=== PATIENT | female | born 1955 | race Caucasian/White ===

== ENCOUNTER → 2016-10-30 | Outpatient (CLI) | payer BC ==
--- NOTE | 2016-10-30 14:11 | MM ---
Reason for exam: history of breast cancer, conservation therapy. Last mammogram was performed 1 year ago. History: Patient is postmenopausal and has history of breast cancer at age 56. Family history of breast cancer in paternal grandmother at age 70. Malignant left breast needle localization of the left breast, February 16, 2012. Lumpectomy of the left breast, February 16, 2012. Malignant left mammotome panel of the left breast, January 28, 2012. Radiation therapy, 2011. Benign excisional biopsy of the left breast, March 18, 2000. Benign excisional biopsy of the right breast , 1984. Took hormonal contraceptives for 21 years. Taking antineoplastic for 3 years beginning at age 56. Physical Findings: Nurse did not find any significant physical abnormalities on exam. MG 3D Diag Mammo W/Cad LORENA Bilateral CC and MLO view(s) were taken. Prior study comparison: October 29, 2015, bilateral MG 3d diag mammo w/cad LORENA. October 25, 2014, bilateral MG diagnostic mammo w CAD LORENA. October 24, 2013, CAD bilateral diagnostic mammogram. October 21, 2012, CAD bilateral diagnostic mammogram. January 12, 2012, bilateral digital screening mammo w/CAD. December 26, 2010, bilateral digital screening mammo w/CAD. The breast tissue is heterogeneously dense. This may lower the sensitivity of mammography. There is chronic nodularity in the left breast. Post surgical deformity and lumpectomy scar redemonstrated in the left breast. No significant new findings when compared with previous films. These results were verbally communicated with the patient and result sheet given to the patient on 10/30/16. ASSESSMENT: Benign, BI-RAD 2 RECOMMENDATION: Follow-up diagnostic mammogram of both breasts in 1 year. YANG
== END | disposition home or self-care (01) ==
LOC: RADMAMWWP 12:53
PROVIDERS: ATTEND Radiology Diagnostic Radiology
DX: C50.912 Malignant neoplasm of unspecified site of left female breast (principal)
CPT/HCPCS: G0204; G0279

== ENCOUNTER 2017-01-09 08:56 | Day surgery (SDC) | payer BC ==
[2017-01-08 08:59] VITALS: BMI 23.3
[~2017-01-09 08:56] MED LIST: LACTATED RINGERS 1,000 ML IV SCH
[2017-01-09 10:33] VITALS: TEMP 98
[2017-01-09] MEDS ORDERED: LIDOCAINE 1% 20 ML VIAL (10MG/ML) FOR IV START INTRADERMA ONE (10:37)
[2017-01-09] MEDS ORDERED: LIDOCAINE 1% INJ 10MG/ML (20 ML MDV) ONE (11:02)
[2017-01-09] MEDS ORDERED: PROPOFOL 10 MG/ML 20 ML VIAL IV ONE (11:02)
--- NOTE | 2017-01-09 11:10 | P.PCN ---
Date of Procedure: 01/09/17 Procedure(s) Performed: BRIEF HISTORY: Patient is a 61-year-old, pleasant, white female, scheduled for an upper endoscopy as a part of evaluation of chest pain, heartburn and excessive burping since October of this year. She is presently on Prilosec 40 mg daily as well as Pepcid 40 mg daily and still remains symptomatic and hence scheduled for an upper endoscopy to evaluate further.. PROCEDURE PERFORMED: Esophagogastroduodenoscopy with biopsy. PREOPERATIVE DIAGNOSIS: GERD/epigastric pain/chest pain and excessive burping. IV sedation per anesthesia. PROCEDURE: After informed consent was obtained, the patient was brought into the endoscopy unit. IV conscious sedation was administered by Anesthesia under continuous monitoring. Initially the Olympus GIF-140 video endoscope was inserted into the mouth. Esophagus intubated without any difficulty. It was gradually advanced into the stomach and duodenum and carefully examined. The bulb and the second part of the duodenum appeared normal. The scope at this time was withdrawn to the stomach, adequately insufflated with air, and upon careful examination, mucosa of the antrum, had mild gastritis and biopsies were done from this area. The body, cardia and the fundus appeared normal. The scope was then withdrawn into the esophagus. The GE junction was located at 39 cm from the incisors. The esophagus appeared normal. There were no erosions or ulcerations seen, biopsies were done from the distal esophagus and the patient tolerated the procedure well. IMPRESSION: 1. Mild antral gastritis. 2. Normal-appearing esophagus with no evidence of esophagitis, esophageal stricture or Edward's esophagus. RECOMMENDATIONS: The findings of this examination were discussed with the patient as well as a family. She was advised to follow with the biopsy results. She was advised to continue with her current medications and follow antireflux measures. I given a prescription for Carafate 1 g 3 times daily as needed.
[2017-01-09 11:30] VITALS: BP 115/79; PULSE 78; RESP 18
== END 2017-01-09 11:49 | disposition home or self-care (01) ==
LOC: ORWHC2ENDO 08:56
PROVIDERS: ATTEND Internal Medicine Gastroenterology
DX: K21.0 Gastro-esophageal reflux disease with esophagitis (principal); K29.50 Unspecified chronic gastritis without bleeding; C50.919 Malignant neoplasm of unspecified site of unspecified female breast; Z79.899 Other long term (current) drug therapy
CPT/HCPCS: 88305; 88342; 43239; J2001; J2704

== ENCOUNTER → 2017-07-02 | Outpatient (CLI) | payer OTHER ==
--- NOTE | 2017-07-02 16:03 | US ---
EXAMINATION TYPE: US pelvic complete DATE OF EXAM: 07/02/2017 COMPARISON: NONE CLINICAL HISTORY: R87.619 abnormal cytological findings in specimens. Patient states no problems. His tory of breast CA 5 years ago. TECHNIQUE: Transabdominal (TA). Date of LMP: About 7-8 years ago EXAM MEASUREMENTS: Uterus: 9.0 x 3.4 x 3.9 cm Endometrial Stripe: 0.6 cm Right Ovary: 2.0 x 1.0 x 1.2 cm Left Ovary: 2.0 x 0.7 x 1.1 cm 1. Uterus: Anteverted Two echogenic foci visualized, largest measuring 0.3 x 0.5 x 0.5 cm. These l ikely represent small calcifications. 2. Endometrium: wnl 3. Right Ovary: wnl 4. Left Ovary: wnl 5. Bilateral Adnexa: wnl 6. Posterior cul-de-sac: wnl IMPRESSION: Thickened endometrial stripe given the patient's age. Direct visualization is recommended .
== END | disposition home or self-care (01) ==
LOC: RADUSWWP 15:25
PROVIDERS: ATTEND Obstetrics & Gynecology
DX: R93.8 Abnormal findings on diagnostic imaging of other specified body structures (principal)
CPT/HCPCS: 76856

== ENCOUNTER → 2017-11-02 | Outpatient (CLI) | payer BC, OTHER ==
--- NOTE | 2017-11-02 14:37 | MM ---
Reason for exam: additional evaluation requested from prior study. Last mammogram was performed 1 year ago. History: Patient is postmenopausal, has history of breast cancer at age 56, and history of other cancer. Family history of breast cancer in paternal grandmother at age 70. Malignant left breast needle localization of the left breast, February 16, 2012. Lumpectomy of the left breast, February 16, 2012. Malignant left mammotome panel of the left breast, January 28, 2012. Radiation therapy, 2011. Benign excisional biopsy of the left breast, March 18, 2000. Benign excisional biopsy of the right breast, 1984. Took hormonal contraceptives for 21 years. Taking antineoplastic for 3 years beginning at age 56. Physical Findings: Nurse did not find any significant physical abnormalities on exam. MG 3D Diag Mammo W/Cad LORENA Bilateral CC and MLO view(s) were taken. Prior study comparison: October 30, 2016, bilateral MG 3d diag mammo w/cad LORENA. October 29, 2015, bilateral MG 3d diag mammo w/cad LORENA. The breast tissue is heterogeneously dense. This may lower the sensitivity of mammography. Stable benign calcifications. Left post lumpectomy. These results were verbally communicated with the patient and result sheet given to the patient on 11/02/17. ASSESSMENT: Benign, BI-RAD 2 RECOMMENDATION: Follow-up diagnostic mammogram of both breasts in 1 year.
== END | disposition home or self-care (01) ==
LOC: RADMAMWWP 13:24
PROVIDERS: ATTEND Radiology Diagnostic Radiology
DX: C50.912 Malignant neoplasm of unspecified site of left female breast (principal)
CPT/HCPCS: 77066; G0279

== ENCOUNTER → 2018-11-03 | Outpatient (CLI) | payer BC ==
--- NOTE | 2018-11-06 18:45 | MM ---
Reason for exam: additional evaluation requested from prior study. Last mammogram was performed 1 year ago. History: Patient is postmenopausal, has history of breast cancer at age 56, and history of other cancer. Family history of breast cancer in paternal grandmother at age 70. Malignant left breast needle localization of the left breast, February 16, 2012. Lumpectomy of the left breast, February 16, 2012. Malignant left mammotome panel of the left breast, January 28, 2012. Radiation therapy, 2011. Benign excisional biopsy of the left breast, March 18, 2000. Benign excisional biopsy of the right breast, 1984. Took hormonal contraceptives for 21 years. Taking antineoplastic for 3 years beginning at age 56. Physical Findings: Nurse did not find any significant physical abnormalities on exam. MG 3D Diag Mammo W/Cad LORENA Bilateral CC and MLO view(s) were taken. Prior study comparison: November 02, 2017, bilateral MG 3d diag mammo w/cad LORENA. October 30, 2016, bilateral MG 3d diag mammo w/cad LORENA. The breast tissue is heterogeneously dense. This may lower the sensitivity of mammography. No suspicious calcifications or masses. Stable post op changes in the left breast area of lumpectomy. These results were verbally communicated with the patient and result sheet given to the patient on 11/03/18. ASSESSMENT: Benign, BI-RAD 2 RECOMMENDATION: Routine screening mammogram of both breasts in 1 year.
== END | disposition home or self-care (01) ==
LOC: RADMAMWWP 12:43
PROVIDERS: ATTEND Radiology Diagnostic Radiology
DX: C50.912 Malignant neoplasm of unspecified site of left female breast (principal)
CPT/HCPCS: 77062; 77066

== ENCOUNTER 2019-01-13 15:31 | Emergency (ER) | payer BC, OTHER ==
[2019-01-13 15:39] VITALS: BP 166/89; PULSE 80; RESP 18; TEMP 98.3
--- NOTE | 2019-01-13 17:27 | ED ---
Head Injury HPI - General Chief complaint: Head Injury Stated complaint: [facility] - fall Time Seen by Provider: 01/13/19 16:51 Source: patient Mode of arrival: wheelchair Limitations: no limitations - History of Present Illness Initial comments: 63-year-old female who denies past medical history presenting today for chief complaint of head injury. Patient states she was at work, when she went to sit in a rolling chair when it slipped back she states she hit her head on the edge of the chair. Patient denies loss of consciousness. Patient states she has a small bump at the area. Patient denies anticoagulation use. Patient denies dizziness nausea vomiting headache. Patient states she feels fine denies diplopia, vision changes muscle weakness sensation deficits or any other abnormalities. Patient states she was told to present to emergency department for evaluation by her employer. Upon arrival patient appears well, she states is tender to palpate at the area or contact was made with the chair and the back of her head and she had some tension in her neck b/l. Remaining ROS (-), patient denies any recent fever, chills, shortness of breath, chest pain, back pain, abdominal pain,dysuria or hematuria, constipation or diarrhea, or any other complaints. - Related Data Home Medications Medication Instructions Recorded Confirmed Famotidine 40 mg PO HS PRN 01/08/17 08/12/17 Mag/Aluminum/Sod Bicarb/Alginc 1 each PO DAILY PRN 01/08/17 08/12/17 [Gaviscon 80-14.2 mg Tab Chew] Omeprazole 40 mg PO DAILY 01/08/17 08/12/17 Acetaminophen Tab [Tylenol Tab] 650 mg PO Q4H PRN 08/10/17 08/12/17 Cholecalciferol [Vitamin D3] 1,000 unit PO DAILY 08/10/17 08/12/17 Tamoxifen Citrate 20 mg PO DAILY 08/11/17 08/12/17 Clotrimazole Cream [Lotrimin Cream] 1 applic TOPICAL BID 08/12/17 08/12/17 Melatonin 5 mg PO HS PRN 08/12/17 08/12/17 Peppermint Oil 1 dose PO DAILY 08/12/17 08/12/17 Previous Rx's Medication Instructions Recorded Cyclobenzaprine [Flexeril] 10 mg PO HS 7 Days #7 tab 01/13/19 Allergies/Adverse reactions: Allergies Allergy/AdvReac Type Severity Reaction Status Date / Time No Known Allergies Allergy Verified 01/13/19 15:39 Review of Systems ROS Statement: Those systems with pertinent positive or pertinent negative responses have been documented in the HPI. ROS Other: All systems not noted in ROS Statement are negative. Past Medical History Past Medical History: GERD/Reflux Additional Past Medical History / Comment(s): hx lt breast cancer with lumpectomy and radiation History of Any Multi-Drug Resistant Organisms: None Reported Past Surgical History: Breast Surgery, Section, Cholecystectomy, Orthopedic Surgery Additional Past Surgical History / Comment(s): lumpectomy lt breast, bone spur lt hip Past Anesthesia/Blood Transfusion Reactions: No Reported Reaction Past Psychological History: No Psychological Hx Reported Smoking Status: Never smoker Past Alcohol Use History: Occasional Past Drug Use History: None Reported - Past Family History Mother Family Medical History: No Reported History Father Family Medical History: CVA/TIA, Dementia, Diabetes Mellitus General Exam - General Exam Comments Initial Comments: General: The patient is awake and alert, in no distress, and does not appear acutely ill. Eye: +3 mm pPupils are equal, round and reactive to light, extra-ocular movements are intact. No nystagmus. There is normal conjunctiva bilaterally. No signs of icterus. Ears, nose, mouth and throat: There are moist mucous membranes and no oral lesions. No raccoon or Quach sign. Tympanic membranes within normal limits. Within normal limits external auditory canal. Neck: The neck is supple, there is no tenderness or JVD. Cardiovascular: There is a regular rate and rhythm. No murmur, rub or gallop is appreciated. Respiratory: Lungs are clear to auscultation, respirations are non-labored, breath sounds are equal. No wheezes, stridor, rales, or rhonchi. Gastrointestinal: Soft, non-distended, non-tender abdomen without masses or organomegaly noted. There is no rebound or guarding present. No CVA tenderness. Bowel sounds are unremarkable. Musculoskeletal: Normal ROM, no tenderness. Strength 5/5. Sensation intact. Pulses equal bilaterally 2+. Neurological: A&O x 3. CN II-XII intact, memory intact to immediately, intermediate and termite control representative recall. Able to follow simple verbal. Able to name a common object (pen). High quality, labial (pa) and lingual (la) speech. Low quality posterior pharynx/larynx (ga) voice sounds. Able to express general knowledge (days in a week). No hemineglect or inattention noted. Finger agnosia (-) and spatially oriented. . Light touch and temperature sensation present over the face, chest, abdomen, back, UE bilaterally, and LE bilaterally. Able to localize point during point localization b/l and extinction. No visible bulk atrophy, hypertrophy, fasciculations, or myoclonus of the UE or LE b/l. Full PROM in UE and LE b/l. Bilateral muscle strength 5/5 for the following muscles: deltoid, biceps, triceps, brachioradialis, wrist extensors/flexor, hip flexor, hip abductors/adductors, hamstrings, quadriceps, feet dorsiflexors/plantar flexors. Finger to nose, finger to the examiners finger, and heel to kamara coordinated and accurate b/l. Coordinated and even demonstration of hand flip, finger to thumb, and toe tap b/l. Gait is coordinated and even in stride with tandem (-) pronator drift. No nuchal rigidity. Midline tenderness palpation of the cervical spine. Patient is able to fully range with for flexion extension and lateral flexion and rotation at the C-spine. Patient has mild paravertebral tenderness . Skin: Skin is warm and dry and no rashes or lesions are noted. Psychiatric: Cooperative, appropriate mood & affect, normal judgment. Limitations: no limitations Course Vital Signs 01/13/19 01/13/19 15:36 17:37 Temperature 98.3 F 98.3 F Pulse Rate 80 80 Respiratory 18 18 Rate Blood Pressure 166/89 166/89 O2 Sat by Pulse 99 99 Oximetry Medical Decision Making - Medical Decision Making Well-appearing 63-year-old female presenting for head injury. No significant mechanism of injury. Patient denies loss of consciousness per patient denies anticoagulation use. Patient amidst to neck tenderness. Patient is no midline tenderness and examination are decreased range of motion. Paravertebral tenderness with muscle tension. Most likely muscle strain. Patient has no focal neurological deficits on examination. Appears well denies symptoms. 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 At this time feel patient stay for discharge with outpatient follow-up and return parameters as discussed. Patient's care with plan of care as well as discharge. Patient is discharged appearing well. After discussing the case with the attending provider Dr. Quezada. Disposition Clinical Impression: Head injury, Muscle strain Disposition: HOME SELF-CARE Condition: Good Instructions (If sedation given, give patient instructions): Head Injury (ED) Additional Instructions: Please use medication as discussed. Please follow-up with family doctor in the next 2 days. Please return to emergency room if the symptoms increase or worsen or for any other concerns, worsening headache, double vision, muscle weakness or sensation deficit. Prescriptions: Cyclobenzaprine [Flexeril] 10 mg PO HS 7 Days #7 tab Is patient prescribed a controlled substance at d/c from ED?: No Referrals: Edward Franco MD [Primary Care Provider] - 1-2 days Time of Disposition: 17:27
== END 2019-01-13 17:37 | disposition home or self-care (01) ==
LOC: EC 15:31
DX: S16.1XXA Strain of muscle, fascia and tendon at neck level, initial encounter (principal); S09.90XA Unspecified injury of head, initial encounter; K21.9 Gastro-esophageal reflux disease without esophagitis; Z79.899 Other long term (current) drug therapy; Z85.3 Personal history of malignant neoplasm of breast; Z90.49 Acquired absence of other specified parts of digestive tract; Z98.890 Other specified postprocedural states; W01.190A Fall on same level from slipping, tripping and stumbling with subsequent striking against furniture, initial encounter; Y92.69 Other specified industrial and construction area as the place of occurrence of the external cause; Y99.0 Civilian activity done for income or pay
CPT/HCPCS: 99283

== ENCOUNTER → 2019-11-07 | Outpatient (CLI) | payer BC ==
--- NOTE | 2019-11-07 13:43 | MM ---
Reason for exam: additional evaluation requested from prior study. Last mammogram was performed 1 year ago. History: Patient is postmenopausal, has history of breast cancer at age 56, and history of other cancer. Family history of breast cancer in paternal grandmother at age 70. Malignant left breast needle localization of the left breast, February 16, 2012. Lumpectomy of the left breast, February 16, 2012. Malignant left mammotome panel of the left breast, January 28, 2012. Radiation therapy, 2011. Benign excisional biopsy of the left breast, March 18, 2000. Benign excisional biopsy of the right breast, 1984. Took hormonal contraceptives for 21 years. Taking antineoplastic for 3 years beginning at age 56. Physical Findings: Nurse did not find any significant physical abnormalities on exam. MG 3D Diag Mammo W/Cad LORENA Bilateral CC and MLO view(s) were taken. Prior study comparison: November 03, 2018, bilateral MG 3d diag mammo w/cad LORENA. November 02, 2017, bilateral MG 3d diag mammo w/cad LORENA. The breast tissue is heterogeneously dense. This may lower the sensitivity of mammography. No suspicious abnormality. Superficial right lower outer quadrant scar. Post therapy change on the left. No significant new findings when compared with previous films. These results were verbally communicated with the patient and result sheet given to the patient on 11/07/19. ASSESSMENT: Benign, BI-RAD 2 RECOMMENDATION: Follow-up diagnostic mammogram of both breasts in 1 year.
== END | disposition home or self-care (01) ==
LOC: RADMAMWWP 12:42
PROVIDERS: ATTEND Radiology Radiation Oncology
DX: Z08 Encounter for follow-up examination after completed treatment for malignant neoplasm (principal); Z85.3 Personal history of malignant neoplasm of breast
CPT/HCPCS: 77062; 77066

== ENCOUNTER → 2020-11-08 | Outpatient (CLI) | payer BC ==
--- NOTE | 2020-11-08 11:23 | MM ---
Reason for exam: additional evaluation requested from prior study. Last mammogram was performed 1 year ago. History: Patient is postmenopausal, has history of other cancer at age 62, and has history of breast cancer at age 56. Family history of breast cancer in paternal grandmother at age 70. Malignant left breast needle localization of the left breast, February 16, 2012. Lumpectomy of the left breast, February 16, 2012. Malignant left mammotome panel of the left breast, January 28, 2012. Radiation therapy, 2011. Benign excisional biopsy of the left breast, March 18, 2000. Benign excisional biopsy of the right breast, 1984. Took hormonal contraceptives for 21 years. Taking antineoplastic for 3 years beginning at age 56. Physical Findings: Nurse did not find any significant physical abnormalities on exam. MG 3D Diag Mammo W/Cad LORENA Bilateral CC and MLO view(s) were taken. Prior study comparison: November 07, 2019, bilateral MG 3d diag mammo w/cad LORENA. November 03, 2018, bilateral MG 3d diag mammo w/cad LORENA. There is chronic nodularity in the left breast. Post surgical and post therapy change left breast. No significant new findings when compared with previous films. These results were verbally communicated with the patient and result sheet given to the patient on 11/08/20. ASSESSMENT: Benign, BI-RAD 2 RECOMMENDATION: Follow-up diagnostic mammogram of both breasts in 1 year.
== END | disposition home or self-care (01) ==
LOC: RADMAMWWP 10:17
PROVIDERS: ATTEND Obstetrics & Gynecology
DX: Z08 Encounter for follow-up examination after completed treatment for malignant neoplasm (principal); Z85.3 Personal history of malignant neoplasm of breast
CPT/HCPCS: 77062; 77066

== ENCOUNTER → 2021-11-21 | Outpatient (CLI) | payer BC ==
--- NOTE | 2021-11-21 11:34 | MM ---
Reason for exam: additional evaluation requested from prior study. Last mammogram was performed 1 year ago. History: Patient is postmenopausal, has history of other cancer at age 62, and has history of breast cancer at age 56. Family history of breast cancer in paternal grandmother at age 70. Malignant left breast needle localization of the left breast, February 16, 2012. Lumpectomy of the left breast, February 16, 2012. Malignant left mammotome panel of the left breast, January 28, 2012. Radiation therapy, 2011. Benign excisional biopsy of the left breast, March 18, 2000. Benign excisional biopsy of the right breast, 1984. Took hormonal contraceptives for 21 years. Taking antineoplastic for 5 years beginning at age 56. Physical Findings: Nurse did not find any significant physical abnormalities on exam. MG 3D Diag Mammo W/Cad LORENA Bilateral CC and MLO view(s) were taken. Prior study comparison: November 08, 2020, bilateral MG 3d diag mammo w/cad OLRENA. November 07, 2019, bilateral MG 3d diag mammo w/cad LORENA. Post surgical and post therapy changes left breast. Post excisional changes right breast. No significant new findings when compared with previous films. These results were verbally communicated with the patient and result sheet given to the patient on 11/21/21. ASSESSMENT: Benign, BI-RAD 2 RECOMMENDATION: Follow-up diagnostic mammogram of both breasts in 1 year.
== END | disposition home or self-care (01) ==
LOC: RADMAMWWP 09:59
PROVIDERS: ATTEND Obstetrics & Gynecology
DX: R92.8 Other abnormal and inconclusive findings on diagnostic imaging of breast (principal); Z78.0 Asymptomatic menopausal state; Z85.3 Personal history of malignant neoplasm of breast; Z80.3 Family history of malignant neoplasm of breast
CPT/HCPCS: 77062; 77066

== ENCOUNTER → 2023-12-15 | Outpatient (CLI) | payer MEDICARE ==
--- NOTE | 2023-12-17 10:02 | MM ---
Reason for Exam: Hx of breast cancer, conservation therapy. Last mammogram was performed 1 year(s) and 1 month(s) ago. Patient History: Menarche at age 14. First Full-Term at age 23. Postmenopausal. Breast cancer, left, age 56. Other cancer, age 62. Previous chest radiation therapy at age 56. Hormonal Contraceptives for 21 years until age 49. 1984, Benign Excisional Biopsy on the right side. 02/16/2012, Malignant Excisional Biopsy on the left side. 01/28/2012, Malignant Core Biopsy on the left side. 03/18/2000, Benign Excisional Biopsy on the left side. 2011, Radiation Therapy. Paternal grandmother had breast cancer, age 70. Tissue Density: The breasts are heterogeneously dense, which may obscure small masses. Findings: Analyzed By CAD. Lumpectomy changes are redemonstrated left breast. No evidence for recurrent or residual mass or microcalcifications. Right breast is unremarkable. Overall Assessment: Benign, BI-RAD 2 Management: Diagnostic Mammogram of both breasts in 1 year. . Results were given to the patient verbally at the time of exam. Patient should continue monthly self-breast exams. A clinical breast exam by your physician is recommended on an annual basis. This exam should not preclude additional follow-up of suspicious palpable abnormalities. Note on Gay scores and lifetime risk: 1. A Gay score greater than 3% is considered moderate risk. If this is the case, consider specialist referral to assess eligibility for a risk reducing agent. 2. If overall lifetime risk for the development of breast cancer is 20% or higher, the patient may qualify for future screening with alternating mammogram and breast MRI. Electronically signed and approved by: Bucky Nicole M.D. Radiologis
== END | disposition home or self-care (01) ==
LOC: RADMAMWWP 09:30
PROVIDERS: ATTEND Obstetrics & Gynecology
DX: R92.333 Mammographic heterogeneous density, bilateral breasts (principal); Z85.3 Personal history of malignant neoplasm of breast; Z80.3 Family history of malignant neoplasm of breast; Z78.0 Asymptomatic menopausal state
CPT/HCPCS: 77066; G0279; 77062